=== PATIENT | male | born 1970 | race Two or more races ===

== ENCOUNTER 2018-04-04 09:40 | Emergency (ER) | payer SELFPAY ==
[~2018-04-04] VITALS: Ht 165.1 cm; Wt 74.5 kg
[2018-04-04 09:44] VITALS: BP 137/94
[2018-04-04] MEDS ORDERED: DIPH,PERTUSS(ACELL),TET VAC/PF 0.5 ML IM-VACC ONE ×2 (10:14→10:30)
[2018-04-04] MEDS ORDERED: LIDOCAINE-MPF 2%, 2ML ONE (10:26)
[2018-04-04] MEDS ORDERED: LIDOCAINE-MPF 2% ,5ML INFIL ONE (10:30)
[2018-04-04] MEDS ORDERED: BACITRACIN ZINC OINT 500U/GM, 0.9 GM ONE (10:57)
== END 2018-04-04 11:17 | disposition home or self-care (01) ==
LOC: ED 10:55
DX: S61.215A Laceration without foreign body of left ring finger without damage to nail, initial encounter (principal); X58.XXXA Exposure to other specified factors, initial encounter; Y93.89 Activity, other specified; Y92.69 Other specified industrial and construction area as the place of occurrence of the external cause; Y99.8 Other external cause status
CPT/HCPCS: 12042; 90471; 90715; 99284